=== PATIENT | male | born 1995 | race Caucasian/White ===

== ENCOUNTER 2019-08-12 22:52 | Emergency (ER) | payer SELFPAY ==
[~2019-08-12] VITALS: Ht 175.3 cm; Wt 70.5 kg
[2019-08-12 23:01] VITALS: Ht 175.3 cm; Wt 70.5 kg
[2019-08-12 23:31] VITALS: BP 125/84
== END 2019-08-12 23:31 | disposition home or self-care (01) ==
LOC: D.ER 22:52
DX: F91.8 Other conduct disorders (principal)

== ENCOUNTER 2019-08-12 23:42 | Emergency (ER) | payer SELFPAY ==
[2019-08-12 23:01] VITALS: BMI 22.9
== END 2019-08-12 23:58 | disposition left against medical advice (07) ==
LOC: D.ER 23:42
DX: Z13.89 Encounter for screening for other disorder (principal)